=== PATIENT | female | born 2000 | race Caucasian/White ===

== ENCOUNTER 2024-03-16 19:11 | Inpatient (IN) | payer BC ==
[~2024-03-16 19:11] MED LIST: Bupivacaine 0.25% 10 ML SDV ONE; Lidocaine 1.5% with EPINEPHrine 1:200,000 5 ML Amp ONE
[2024-03-16] MEDS ORDERED: Nalbuphine HCl 10 MG/ 1ML Amp IVPUSH PRN (19:42)
[2024-03-16] MEDS ORDERED: Lidocaine 1% 50 ML MDV INJECT PRN (19:42)
[2024-03-16] MEDS ORDERED: Oxytocin/Lactated Ringers 30 UNIT/500 ML BAG IV SCH (19:45)
[2024-03-16 20:10] LABS: BASOPHILS PERCENT AUTO 0.2 % (0.0-1.0); EOSINOPHILS ABSOLUTE AUTO 0.1 K/mm3 (0.0-0.4); EOSINOPHILS PERCENT AUTO 0.4 % (0.0-6.0); HEMATOCRIT 34.2 % (37.0-47.0); IMMATURE GRAN ABSOLUTE AUTO 0.07 K/mm3 (0.00-0.05); IMMATURE GRAN PERCENT AUTO 0.6 % (0.0-0.4); LYMPHOCYTES PERCENT AUTO 17.8 % (24.0-44.0); MEAN CORPUSCULAR HEMOGLOBIN 27.9 pg (28.0-32.0); MEAN CORPUSCULAR HGB CONC 32.2 g/dl (32.0-36.0); MEAN CORPUSCULAR VOLUME 86.8 fl (83.0-99.0); MEAN PLATELET VOLUME 10.4 fl (9.4-12.3); MONOCYTES ABSOLUTE AUTO 0.8 K/mm3 (0.0-0.8); MONOCYTES PERCENT AUTO 7.1 % (0.0-8.0); NEUTROPHILS ABSOLUTE AUTO 8.5 K/mm3 (1.8-7.7); NEUTROPHILS PERCENT AUTO 73.9 % (41.0-71.0); PLATELET COUNT,PLT 274 K/mm3 (150-400); RED BLOOD CELL COUNT 3.94 M/mm3 (4.10-5.30); WHITE BLOOD CELL COUNT,WBC 11.46 K/mm3 (3.9-11.3)
[2024-03-16] MEDS: Misoprostol 25 MCG (1/4 of 100 MCG) Tab VAG ONE (20:28)
[2024-03-16] MEDS: Lactated Ringers 1,000 ML IV SCH (23:41)
[2024-03-17] MEDS: Misoprostol 25 MCG (1/4 of 100 MCG) Tab VAG PRN (01:14)
[2024-03-17] MEDS: Nalbuphine 10 MG/ML Syringe IVPUSH PRN (08:28)
[2024-03-17 08:59] LABS: BASOPHILS PERCENT AUTO 0.3 % (0.0-1.0); EOSINOPHILS ABSOLUTE AUTO 0.1 K/mm3 (0.0-0.4); EOSINOPHILS PERCENT AUTO 0.7 % (0.0-6.0); HEMATOCRIT 33.8 % (37.0-47.0); HEMOGLOBIN 10.9 gm/dl (12.0-16.0); IMMATURE GRAN ABSOLUTE AUTO 0.09 K/mm3 (0.00-0.05); IMMATURE GRAN PERCENT AUTO 0.6 % (0.0-0.4); LYMPHOCYTES ABSOLUTE AUTO 2.7 K/mm3 (1.0-4.8); LYMPHOCYTES PERCENT AUTO 18.2 % (24.0-44.0); MEAN CORPUSCULAR HGB CONC 32.2 g/dl (32.0-36.0); MEAN CORPUSCULAR VOLUME 86.9 fl (83.0-99.0); MEAN PLATELET VOLUME 10.4 fl (9.4-12.3); MONOCYTES ABSOLUTE AUTO 1.3 K/mm3 (0.0-0.8); MONOCYTES PERCENT AUTO 8.5 % (0.0-8.0); NEUTROPHILS ABSOLUTE AUTO 10.5 K/mm3 (1.8-7.7); NEUTROPHILS PERCENT AUTO 71.7 % (41.0-71.0); PLATELET COUNT,PLT 284 K/mm3 (150-400); RED BLOOD CELL COUNT 3.89 M/mm3 (4.10-5.30); WHITE BLOOD CELL COUNT,WBC 14.68 K/mm3 (3.9-11.3)
[2024-03-17] MEDS ORDERED: diphenhydrAMINE 50 MG/ML SDV IVPUSH PRN (09:02)
[2024-03-17] MEDS ORDERED: ePHEDrine 50 MG/ML SDV IVPUSH PRN (09:02)
[2024-03-17] MEDS: Bupivacaine/fentaNYL/NS 100 ML Bag EPIDUR PRN (09:11)
[2024-03-17] MEDS: fentaNYL 100 MCG/2 ML SDV EPIDUR PRN (09:11)
[2024-03-17 09:19] LABS: CREATININE 0.8 mg/dL (0.55-1.02); EST CRCL DRUG DOSING (CG) 89.7 mL/min; URIC ACID 6.2 mg/dL (2.6-6.0)
[2024-03-17] MEDS: Oxytocin/Lactated Ringers 30 UNIT/500 ML BAG IV SCH (11:19)
[2024-03-17 11:34] LABS: CREATININE,URINE RAND 131.3 mg/dL (30.0-125.0); PROTEIN CREATININE RATIO,URINE 175.2 mg/g (0-149)
[2024-03-17] MEDS ORDERED: Ondansetron 4 MG/2 ML SDV IVPUSH PRN (17:09)
[2024-03-17] MEDS: Witch Hazel Medicated Pads 40/Jar TOP PRN (20:00)
[2024-03-17] MEDS: Benzocaine/Menthol 20%-0.5% Spray 78 GM Cannister TOP PRN (20:00)
[2024-03-18] MEDS: Ibuprofen 600 MG Tab PO PRN (01:51)
[2024-03-18] MEDS: Acetaminophen 325 MG Tab PO PRN (20:50)
== END 2024-03-18 21:45 | disposition home or self-care (01) | DRG 560 ==
LOC: JD.OB 19:11 → OBSVTOIN 03-17 18:07 → JD.OB 03-17 18:08
PROVIDERS: ADMIT Obstetrics & Gynecology; ATTEND Obstetrics & Gynecology
PROC: 10E0XZZ Delivery of Products of Conception, External Approach (ICD-10-PCS; principal; 2024-03-17)
PROC: 3E0P7VZ Introduction of Hormone into Female Reproductive, Via Natural or Artificial Opening (ICD-10-PCS; 2024-03-17)
PROC: 0KQM0ZZ Repair Perineum Muscle, Open Approach (ICD-10-PCS; 2024-03-17)
PROC: 3E0R3BZ Introduction of Anesthetic Agent into Spinal Canal, Percutaneous Approach (ICD-10-PCS; 2024-03-17)
PROC: 00HU33Z Insertion of Infusion Device into Spinal Canal, Percutaneous Approach (ICD-10-PCS; 2024-03-17)
DX: O70.1 Second degree perineal laceration during delivery (principal); Z37.0 Single live birth; Z3A.40 40 weeks gestation of pregnancy
CPT/HCPCS: 36415; 51702; 59025; 59409; 82565; 82570; 83615; 84156; 84450; 84460; 84520; 84550; 85025; 86592; 86850; 86900; 86901; A9270-GY; J2300; J3010; J3490; J7120; J7999